=== PATIENT | female | born 1970 | race Caucasian/White ===

== ENCOUNTER 2019-04-17 23:22 | Emergency (ER) | payer OTHER ==
[~2019-04-17] VITALS: Ht 165.1 cm; Wt 63.5 kg
[2019-04-17 23:45] LABS: BASOPHILS 1.3 % (0.0-2.0); EOSINOPHILS 2.1 % (0.0-3.0); HEMATOCRIT 36.3 % (37.0-47.0); HEMOGLOBIN 12.6 gm/dL (12.0-15.0); LYMPHOCYTES 21.1 % (24.0-44.0); MCH 31.3 pg (26.0-34.0); MCHC 34.9 g/dL (28.0-37.0); MCV 89.8 fL (80.0-100.0); MONOCYTES 5.6 % (1.0-8.0); PLATELET COUNT 229 thou/uL (150-400); POLYS 69.9 % (36.0-66.0); RBC 4.04 mil/uL (4.20-5.00); RDW 12.5 % (10.5-14.5)
[2019-04-18 00:03] LABS: ANION GAP 12 mmol/L (7-16); BUN 18 mg/dL (7-18); CALCIUM 8.6 mg/dL (8.5-10.1); CHLORIDE 101 mmol/L (98-107); CO2 26 mmol/L (21-32); CREATININE 1.2 mg/dL (0.6-1.0); GLUCOSE 142 mg/dL (74-106); POTASSIUM 3.7 mmol/L (3.5-5.1); SODIUM 139 mmol/L (136-145)
[2019-04-18 00:07] LABS: ALBUMIN 3.7 g/dL (3.4-5.0); DIRECT BILIRUBIN < 0.1 mg/dL (<0.1-0.3); SGOT 31 U/L (15-37); SGPT 32 U/L (30-65); TOTAL BILIRUBIN 0.2 mg/dL (<0.1-1.0); TOTAL PROTEIN 7.4 g/dL (6.4-8.2)
[2019-04-18 00:53] LABS: URINE BILIRUBIN NEGATIVE (Negative); URINE BLOOD TRACE (Negative); URINE CLARITY CLEAR; URINE COLOR YELLOW; URINE GLUCOSE-RANDOM* NEGATIVE (Negative); URINE KETONES NEGATIVE (Negative); URINE LEUKOCYTES-REFLEX NEGATIVE (Negative); URINE NITRITE-REFLEX NEGATIVE (Negative); URINE PROTEIN (DIPSTICK) NEGATIVE (Negative); URINE SPECIFIC GRAVITY >= 1.030 (1.005-1.035); URINE UROBILINOGEN 0.2 E.U./dl (0.2-1.0)
[2019-04-18 01:01] LABS: AMP/METHAMP Negative (Negative); BARBITURATES Negative (Negative); BENZODIAZEPINES Negative (Negative); COCAINE Negative (Negative); METHADONE Negative (Negative); OPIATES Negative (Negative); PCP Negative (Negative)
[2019-04-18 01:53] VITALS: BP 115/61
[2019-04-18] MEDS ORDERED: KEPPRA 500 MG500 M1 PO (02:15)
== END 2019-04-18 02:40 | disposition home or self-care (01) ==
LOC: ER 23:22
PROVIDERS: Emergency Medicine
DX: R56.9 Unspecified convulsions (principal)

== ENCOUNTER → 2019-05-07 | Outpatient (CLI) | payer OTHER ==
[~2019-05-07] MED LIST: KEPPRA 500 MG500 M1 PO
[2019-05-07 10:14] LABS: CREATININE 1.1 mg/dL (0.6-1.0)
--- NOTE | 2019-05-11 17:09 | EEG ---
[facility] [place] [address] ELECTROENCEPHALOGRAM Name: DL BAILEY Room #: [facility].#: [id number] ������������������ Admission: 05/07/19 ������������������ Attend Phys: Huang Kate MD Discharge: ������������������ Date of : 66 Report #: [id number] ����������������������������������������������������������������� [id number] THIS REPORT FOR: //name// CC: Huang Valenzuela DATE OF SERVICE: 05/07/2019 This patient's EEG was done by placing the electrodes by standard 10-20 system of electrode placement. Both referential and sequential montages were used for recording. Background activity in this patient's EEG is about 11 Hz and 50 microvolts. The patient became drowsy and that is associated with bilateral slowing. Photic stimulation was unremarkable. Throughout the record, no active epileptiform activity was noticed. IMPRESSION: This patient's EEG is within normal limits. Thank you very much for this referral. ���������������������������������������� <ELECTRONICALLY SIGNED> ���������������������������������������� By: Huang Kate MD ��������������������������������������������� 05/11/19 1709 1020 [id number] Huang Kate MD /nt
== END ==
LOC: NEURO 05-06 09:41
PROVIDERS: Psychiatry & Neurology Neuromuscular Medicine
DX: R56.9 Unspecified convulsions (principal); R29.2 Abnormal reflex; R51 Headache

== ENCOUNTER 2019-11-12 09:17 | Emergency (ER) | payer OTHER ==
[~2019-11-12] VITALS: Ht 165.1 cm; Wt 72.6 kg
[2019-11-12 09:17] VITALS: BP 128/80
== END 2019-11-12 09:52 | disposition home or self-care (01) ==
LOC: ER 09:17
DX: R05 Cough (principal); R09.81 Nasal congestion